=== PATIENT | male | born 1990 | race Caucasian/White ===

== ENCOUNTER 2024-05-06 10:58 | Outpatient (AMB) | payer BC, SELFPAY ==
--- NOTE | 2024-05-06 11:02 | MHC.PC.OV ---
Vital Signs 05/06/24 11:10 Height 5 ft 11 in Weight 210 lb 8 oz BMI 29.4 BP 128/82 Blood Pressure Location Lt brachial Position Sitting Respiration 16 Pulse 79 Pulse Source Pulse Oximeter Temp 97.9 F Temp Source Oral Pulse Oximetry (%) 97 Oxygen Delivery Method Room Air Intake Visit Reasons: [employer]- PE request Intake Note: patient here for new patient visit. Italian Tutor Required: No Allergies No Known Allergies Allergy (Verified 05/06/24 11:35) Tobacco use date assessed: 05/06/24 Dental Screening Dental Screen Date: 05/06/24 Did you have a dental visit in the last 12 months?: Yes Did you have a dental problem in the last 6 months where you did not have access to dental care?: No Was dental information given to patient?: Patient has dentist HPI HPI Comments History of Present Illness Details New patient Prior PCP:?[facility]. Dr Nate Knight Last office visit/CPE: About 8 years Acute issue(s): None Not on prescription medication He admits to making healthy lifestyle changes, including diet and exercise Right fibular and right ankle fracture following a trampoline injury on 05/19/2024. He is followed by [facility]. Currently wearing ortho boot PMHx: None SurgHx: Right AC separation repair, right ankle repair FHx: Dad: Alcohol abuse SocHx: Smokes 5-7 cigarettes daily; he been smoking less than half a pack daily for 11 years. Drinks approx 7-14 beers weekly. Smokes a couple hits of cannabis occasionally Last eye exam several years ago Last tetanus vaccine unknown He has not been vaccinated for the flu and declines the vaccine [facility] Surgical History (Updated 05/06/24 @ 12:15 by Jana Cano CNP) History of ankle surgery History of shoulder surgery Family History (Updated 05/06/24 @ 11:09 by Rima Carlos MA) Father Alcohol abuse Brother FH: mental illness Social History (Updated 05/06/24 @ 11:15 by Rima Carlos MA) Housing: House Patient Tobacco Use Status: Current everyday Tobacco user Cigarette Packs Per Day: 0 Cigarettes Per Day: 7 e-Cigarette/Vaping Use: Never Used Second Hand Smoke Exposure: Yes Substance Use Type: Marijuana service: No Current occupational status: employed 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 1. Little interest or pleasure in doing things: not at all 2. Feeling down, depressed, or hopeless: not at all 3. Trouble falling or staying asleep, or sleeping too much: several days 4. Feeling tired or having little energy: several days 5. Poor appetite or overeating: not at all 6. Feeling bad about yourself - or that you are a failure or have let yourself or your family down: not at all 7. Trouble concentrating on things, such as reading the newspaper or watching television: not at all 8. Moving or speaking so slowly that other people could have noticed. Or the opposite - being so fidgety or restless that you have been moving around a lot more than usual: not at all 9. Thoughts that you would be better off or of hurting yourself in some way: not at all Total score: 2 Depression Screening Interpretation: Negative Depression Screening Done: Yes 12994 - PHQ-9 Billing: Yes Source: Developed by Drs. Alan Scott, Sabina Hernandez, Jayy Bradley and colleagues, with an educational britton from [employer]. Thrive Questionnaire Date Thrive assessed: 05/06/24 I am a: Patient What is your living situation today?: I have a steady place to live Within the past 12 months, did the food you bought not last and you didn't have the money to get more?: Never true Within the past 12 months, did you worry whether your food would run out before you got money to buy more?: Never true Do you have trouble paying for medicines?: No Do you have trouble getting transportation to medical appointments?: No Do you have trouble paying your heating and electricity bill?: No Do you have trouble taking care of your child, family member or friend?: No Do you have trouble with day-to-day activities such as bathing, preparing meals, shopping, managing finances, etc.?: No Are you currently unemployed and looking for a job?: No Are you interested in more education?: No Please select the resources that you would like help with: None Currently or been in a relationship where the following occur: No concerns reported THRIVE Score: 0 AUDIT C Alcohol Use Questionnaire (AUDIT-C) 1. How often do you have a drink containing alcohol?: 2-3 times a week 2. How many drinks containing alcohol do you have on a typical day when you are drinking?: 3 or 4 3. How often do you have six or more drinks on one occasion?: Monthly Total Score: 6 Score Reviewed/Action Taken: Yes ELE-7 AMB Questionnaire ELE-7 Date ELE - 7 assessed: 05/06/24 Feeling nervous, anxious, or on edge: 1 = Several days Not being able to stop or control worryin = Not at all Worrying too much about different things: 1 = Several days Trouble relaxin = Several days Being so restless that it is hard to sit still: 1 = Several days Becoming easily annoyed or irritable: 0 = Not at all Feeling afraid as if something awful might happen: 0 = Not at all Total ELE-7 score (0-4 normal; 5-9 mild; 10-14 moderate; 15-21 severe): 4 Source: Developed by Drs. Alan Scott, Sabina Hernandez, Jayy Bradley and colleagues, with an educational britton from [employer]. ELE-7 Assessment Billing ELE-7 Assessment Tool: ELE-7 Assessment 57968 Review of Systems Const Details: Denies chills, Denies fatigue, Denies fever(s), Denies headache(s) and Denies weakness HEENT Denies change in vision, Denies dizziness, Denies headache(s), Denies hearing loss, Denies nasal congestion, Denies sinus pain, Denies sinus pressure and Denies sore throat Card Denies chest pain, Denies lightheadedness, Denies dyspnea and Denies other (palpitations) Resp Denies cough, Denies dyspnea and Denies wheezing GI Denies abdominal pain, Denies melena, Denies hematochezia, Denies change in bowel habits, Denies dyspepsia and Denies nausea Denies hematuria and Denies dysuria Musc Denies abnormal gait, Denies myalgias, Denies arthralgias, Denies numbness and Denies tingling Skin/Breast Denies rash, Denies unusual bruising and Denies wounds Neuro Denies abnormal gait, Denies dizziness, Denies headache(s), Denies memory loss, Denies numbness, Denies Sensory deficit (Neuro), Denies tingling and Denies weakness Psych Denies anxiety, Denies depression and Denies memory loss Endo Denies cold intolerance, Denies fatigue, Denies heat intolerance, Denies polydipsia and Denies polyuria Ced/Lymph Denies easy bleeding and Denies easy bruising Aller/Immun Denies wheezing Physical exam (Primary Care) Vital Signs: Last Vital Signs Temp 97.9 F 05/06/24 11:10 Pulse 79 05/06/24 11:10 Resp 16 05/06/24 11:10 BP 128/82 05/06/24 11:10 Pulse Ox 97 05/06/24 11:10 Oxygen Delivery Method Room Air 05/06/24 11:10 BMI result Body Mass Index 29.4 Tobacco/Smoking Status: Tobacco use Status Tobacco use date assessed 05/06/24 05/06/24 11:18 Patient Tobacco Use Status Current everyday Tobacco 05/06/24 11:18 e-Cigarette/Vaping Use Never Used 05/06/24 11:18 PHQ-9: PHQ-9 Score PHQ-9: Total score 2 05/06/24 11:18 Depression Screening Interpretation: Negative Thrive Assessment: Date of Thrive Assessment Date Thrive assessed 05/06/24 05/06/24 11:18 Currently or been in a relationship where the following occur: No concerns reported Const Other: General: no acute distress, well developed, alert and awake Nutritional Appearance: well nourished Orientation/consciousness: patient oriented x3 HENMT Head: Yes normocephalic and Yes atraumatic Ears: hearing grossly normal bilaterally and TM's normal bilaterally General nose exam: Normal external nose present and Normal nares present Mouth: Normal oral and palatal mucosa present and moist mucous membranes Teeth and gingiva: dentition normal Throat: Yes oropharynx normal Eyes Pupils: Equal, round and reactive pupils present and Pupil accommodation reflex normal EOM: EOMs intact bilaterally Neck Neck: Yes normal visual inspection, Yes no lymphadenopathy and Yes trachea midline Thyroid: Thyroid normal Carotids: no bruits Lymphatic: no lymphadenopathy noted Chest Chest palpation & inspection: normal inspection of the chest Resp Effort & Inspection: normal respiratory effort Auscultation: clear to auscultation bilaterally Cardio Rate: regular rate Rhythm: regular rhythm Heart sounds: S1 normal heart sound present, S2 normal heart sound present, no gallops, no murmurs and no rubs Bruits: no abdominal aortic bruits and no carotid bruits GI Palpation (GI): No Abdominal aortic bruit present, Soft to palpation, nontender, No hepatosplenomegaly present and No Rebound tenderness present Auscultation: normal bowel sounds General: Yes no CVA tenderness Back/Spine/Pelvis Back: no CVA tenderness Cervical Spine: cervical ROM normal and No Cervical spine tenderness Thoracic/Lumbar Spine: thoraco-lumbar ROM normal, No pain with thoraco-lumbar ROM, No thoracic spinal tenderness and No lumbar spinal tenderness Skin General: warm and dry. Normal skin color. Normal skin turgor Lesions: no lesions Rashes: no rashes Trauma: no lacerations or abrasions Wounds: no wounds Nails: normal Neuro General: patient oriented x3, gait normal and CN's II-XI intact bilaterally Cranial nerves: Yes Equal, round and reactive pupils present Cognition (Neuro): normal cognition Gait exam (Neuro): Normal gait present Motor exam (neuro): 5/5 motor strength present throughout Sensory Exam: No Sensory deficit (Neuro) Deep tendon reflexes (DTR's): Right patellar reflex intensity grade: 2+ and Left patellar reflex intensity grade: 2+ Extrem General: Yes normal to inspection, No edema and No calf tenderness Psych Appearance: grossly normal Affect: normal affect Attitude: cooperative Thought process: Normal thought process present Coding Level of Care Code New Pt Level 3 (91574) New Pt Prev Care 18-39yr(73084 Diagnoses Normal physical examination, routine Z00.00 Routine eye exam Z01.00 History of ankle surgery Z98.890 Smoking trying to quit Z72.0 Laboratory tests ordered as part of a complete physical exam (CPE) Z00.00 Additional Codes ELE-7 Assessment Billing - ELE-7 Assessment Tool: ELE-7 Assessment 27707 ([id number]) Assessment & Plan Assessment & Plan (1) Normal physical examination, routine: Code(s): Z00.00 - Encounter for general adult medical examination without abnormal findings Category: Medical Plan: Slight physical restrictions and limitations due to h/o right ankle fracture Healthy diet and routine exercise encouraged Encouraged to reduce alcohol consumption to no more than 7 drinks per week Advised to get lab work done and follow up with for a telehealth visit in 2-3 weeks Return sooner with symptoms or concerns Verbalized understanding and agreed with the pain (2) Routine eye exam: Code(s): Z01.00 - Encounter for examination of eyes and vision without abnormal findings Category: Medical Plan: Last eye exam several years ago Referred to Ophthalmology for routine eye exam (3) History of ankle surgery: Code(s): Z98.890 - Other specified postprocedural states Category: Surgical Plan: Followed by [facility] (4) Smoking trying to quit: Code(s): Z72.0 - Tobacco use Category: Social Hx Plan: Smokes 5-7 cigarettes daily; he been smoking less than half a pack daily for 11 years He notes that he has never tried medication for smoking cessation and expressed desire to stop smoking with medication treatment Instructed on the health risks and complications of cigarette smoking. Smoking cessation encouraged Nicotine patch ordered. Advised to use as prescribed. Instructed on the risks, benefits, and potential adverse reactions of the medications Follow-up with worsening or new symptoms Verbalized understanding and agreed with the plan (5) Laboratory tests ordered as part of a complete physical exam (CPE): Code(s): Z00.00 - Encounter for general adult medical examination without abnormal findings Category: Medical Plan: Fasting labs ordered as part of a complete physical exam. Advised to fast for at least 10 hours before getting labs drawn. May drink water Verbalized understanding and agreed with treatment plan. Orders: Orders Complete Blood Count Auto Diff Today Z00.00 - Encounter for general adult medical examination without abnormal findings Lipid Panel Today Z00.00 - Encounter for general adult medical examination without abnormal findings Comprehensive [place]. Panel Fast Today Z00.00 - Encounter for general adult medical examination without abnormal findings TSH reflex Free T4 Today Z00.00 - Encounter for general adult medical examination without abnormal findings UA CC w/rflx Micro + Cult Today Z00.00 - Encounter for general adult medical examination without abnormal findings Referrals Ophthalmology Referral Z01.00 - Encounter for examination of eyes and vision without abnormal findings Medications: New nicotine Apply 14 mg patch daily x6 weeks, then apply 7 mg patch daily x2 weeks 1 patch transdermal Q24H 56 ea 0RF
[2024-05-06 11:10] VITALS: BP 128/82; PULSE 79; RESP 16; TEMP 36.6; O2SAT 97; BMI 29.4
== END 2024-05-06 11:58 | disposition home or self-care (01) ==
PROVIDERS: Visit Provider Nurse Practitioner Family
DX: Z00.00 Encounter for general adult medical examination without abnormal findings (principal); F17.210 Nicotine dependence, cigarettes, uncomplicated; Z98.890 Other specified postprocedural states

== ENCOUNTER → 2024-05-06 10:58 | Outpatient (BNVA) | payer BC, SELFPAY | PROVIDERS: Visit Provider Nurse Practitioner Family | DX: Z00.00 Encounter for general adult medical examination without abnormal findings (principal); Z72.0 Tobacco use | CPT/HCPCS: 96127 ==

== ENCOUNTER 2024-05-06 12:03 | Outpatient (REF) | payer BC, SELFPAY ==
[2024-05-06 14:08] LABS: MANUAL DIFF FLAG NO
[2024-05-06 14:09] LABS: Appearance Urine Clear; Color Urine Yellow; Glucose Urine UA Negative (Negative); Leukocyte Esterase Urine Negative (Negative); Nitrite Urine Negative (Negative); Specific Gravity - Urine 1.025 (1.005-1.025); Urine Blood Negative (Negative); Urine Ketones Negative (Negative); Urine Protein Negative (Neg-Trace)
[2024-05-06 14:18] LABS: Basophils Percent Auto 0.6 % (0-2); Eosinophils Absolute Auto 0.1 X10*3/uL (0.0-0.4); Eosinophils Percent Auto 1.1 % (0-4); Hematocrit 47.4 % (42.0-52.0); Hemoglobin 15.8 g/dl (14.0-18.0); Imm Gran Abs Auto 0.02 X10*3/uL (0.00-0.03); Imm Gran Pct Auto 0.4 % (0.0-0.4); Lymphocytes Absolute Auto 0.9 X10*3/uL (1.2-4.9); Lymphocytes Percent Auto 19.2 % (20-40); Mean Corpuscular HGB Conc 33.3 g/dl (31.0-36.0); Mean Corpuscular Hemoglobin 31.1 pg (27.0-33.0); Mean Corpuscular Volume 93.3 fL (80.0-98.0); Mean Platelet Volume 10.4 fL (9.4-12.4); Monocytes Absolute Auto 0.3 X10*3/uL (0.1-1.2); Neutrophils Absolute Auto 3.4 x10*3/uL (2.0-8.3); Neutrophils Percent Auto 71.7 % (45-73); Platelet Count 199 X10*3/uL (160-400); Red Blood Count 5.08 X10*6/uL (4.60-5.80); Red Cell Distribution Width 12.7 % (11.0-16.0); White Blood Count 4.7 X10*3/uL (4.8-10.8)
[2024-05-06 14:46] LABS: Alanine Aminotransferase 71 U/L (0-40); Albumin Level 4.6 g/dL (3.5-5.0); Alkaline Phosphatase 75 U/L (39-117); Anion Gap 12 (12-20); Aspartate Amino Transferase 32 U/L (5-37); Bilirubin Total 0.7 mg/dL (0.0-1.0); Blood Urea Nitrogen 12 mg/dL (9-16); Carbon Dioxide 28 mmol/L (22-29); Chloride 106 mmol/L (96-108); Cholesterol 213 mg/dL (<200); Estimated Glomerular Filt Rate > 60; Glucose Fasting 94 mg/dL (60-99); HDL Cholesterol 56 mg/dL (>40); LDL Cholesterol Calculated 111 mg/dL (<100); Potassium 3.9 mmol/L (3.3-5.1); Sodium 142 mmol/L (135-145); Total Protein 7.7 g/dL (6.5-8.0); Triglycerides 233 mg/dL (<150)
[2024-05-06 14:50] LABS: TSH reflex Free T4 1.33 uIU/mL (0.32-4.0)
== END 2024-05-06 12:04 | disposition home or self-care (01) ==
LOC: HO.WFDLDS 12:03
PROVIDERS: Visit Provider Nurse Practitioner Family
DX: Z00.00 Encounter for general adult medical examination without abnormal findings (principal)
CPT/HCPCS: 36415; 80053; 80061; 81003; 84443; 85025

== ENCOUNTER 2024-05-21 09:41 | Outpatient (AMB) | payer BC, SELFPAY ==
--- NOTE | 2024-05-21 09:46 | A.OFFPC_ITS ---
Vital Signs 05/21/24 09:50 Height 5 ft 11 in Weight 213 lb 4 oz BMI 29.7 BP 120/86 Blood Pressure Location Rt brachial Position Sitting Respiration 16 Pulse 73 Pulse Source Pulse Oximeter Temp 97.6 F Temp Source Oral Pulse Oximetry (%) 97 Oxygen Delivery Method Room Air Intake Visit Reasons: Family Medical leave Paperwork discuss Intake Note: patient here to discuss family medical leave paperwork Transportation Agent Required: No Allergies No Known Allergies Allergy (Verified 05/21/24 10:00) Medication List - Last Reconciled 05/21/24 by Jana Cano CNP nicotine 1 patch transdermal Q24H Tobacco use date assessed: 05/21/24 Dental Screening Dental Screen Date: 05/21/24 Did you have a dental visit in the last 12 months?: Yes Did you have a dental problem in the last 6 months where you did not have access to dental care?: No Was dental information given to patient?: Patient has dentist HPI HPI Comments History of Present Illness Details 34-year-old male presents with requests to complete FMLA paperwork for his employer. He had left ankle repair surgery in February,. He is [facility]. He is currently doing formal physical therapy twice weekly and home/self physical therapy the rest of the week. No acute symptoms at this time. COUNT INCLUDES THE [facility] Surgical History (Updated 05/06/24 @ 12:15 by Jana Cano CNP) History of ankle surgery History of shoulder surgery Family History (Updated 05/06/24 @ 11:09 by Rima Carlos MA) Father Alcohol abuse Brother FH: mental illness Social History (Updated 05/06/24 @ 11:15 by Rima Carlos MA) Housing: House Patient Tobacco Use Status: Current everyday Tobacco user Cigarette Packs Per Day: 0 Cigarettes Per Day: 7 e-Cigarette/Vaping Use: Never Used Second Hand Smoke Exposure: Yes Substance Use Type: Marijuana service: No Current occupational status: employed 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 1. Little interest or pleasure in doing things: not at all 2. Feeling down, depressed, or hopeless: not at all 3. Trouble falling or staying asleep, or sleeping too much: not at all 4. Feeling tired or having little energy: not at all 5. Poor appetite or overeating: not at all 6. Feeling bad about yourself - or that you are a failure or have let yourself or your family down: not at all 7. Trouble concentrating on things, such as reading the newspaper or watching television: not at all 8. Moving or speaking so slowly that other people could have noticed. Or the opposite - being so fidgety or restless that you have been moving around a lot more than usual: not at all 9. Thoughts that you would be better off or of hurting yourself in some way: not at all Total score: 0 20463 - PHQ-9 Billing: Yes Source: Developed by Drs. Alan Scott, Sabina Hernandez, Jayy Bradley and colleagues, with an educational britton from [employer]. Thrive Questionnaire Date Thrive assessed: 05/21/24 I am a: Patient What is your living situation today?: I have a steady place to live Within the past 12 months, did the food you bought not last and you didn't have the money to get more?: Never true Within the past 12 months, did you worry whether your food would run out before you got money to buy more?: Never true Do you have trouble paying for medicines?: No Do you have trouble getting transportation to medical appointments?: No Do you have trouble paying your heating and electricity bill?: No Do you have trouble taking care of your child, family member or friend?: No Do you have trouble with day-to-day activities such as bathing, preparing meals, shopping, managing finances, etc.?: No Are you currently unemployed and looking for a job?: No Are you interested in more education?: No Please select the resources that you would like help with: None Currently or been in a relationship where the following occur: No concerns reported THRIVE Score: 0 ELE-7 AMB Questionnaire ELE-7 Date ELE - 7 assessed: 05/21/24 Feeling nervous, anxious, or on edge: 0 = Not at all Not being able to stop or control worryin = Not at all Worrying too much about different things: 1 = Several days Trouble relaxin = Not at all Being so restless that it is hard to sit still: 0 = Not at all Becoming easily annoyed or irritable: 0 = Not at all Feeling afraid as if something awful might happen: 0 = Not at all Total ELE-7 score (0-4 normal; 5-9 mild; 10-14 moderate; 15-21 severe): 1 Source: Developed by Drs. Alan Scott, Sabina Hernandez, Jayy Bradley and colleagues, with an educational britton from [employer]. ELE-7 Assessment Billing ELE-7 Assessment Tool: ELE-7 Assessment 33174 Review of Systems Const Details: Const Denies chills, Denies fatigue, Denies fever(s), Denies headache(s) and Denies weakness ENT Denies dizziness and Denies headache(s) Card Denies chest pain, Denies lightheadedness, Denies dyspnea and Denies other (Palpitations) Resp Denies cough, Denies dyspnea, Denies wheezing and Denies other ( shortness of breath) GI Denies abdominal pain, Denies melena, Denies hematochezia, Denies change in bowel habits, Denies dyspepsia and Denies nausea Denies hematuria and Denies dysuria Musc Denies abnormal gait, Denies myalgias, Denies arthralgias, Denies numbness and Denies tingling Skin/Breast Denies rash, Denies unusual bruising and Denies wounds Neuro Denies abnormal gait, Denies dizziness, Denies headache(s), Denies memory loss, Denies numbness, Denies Sensory deficit (Neuro), Denies tingling and Denies weakness Psych Denies anxiety, Denies depression, Denies memory loss Endo Denies cold intolerance, Denies fatigue, Denies heat intolerance, Denies polydipsia and Denies polyuria Aller/Immun Denies wheezing Physical exam (Primary Care) Vital Signs: Last Vital Signs Temp 97.6 F 05/21/24 09:50 Pulse 73 05/21/24 09:50 Resp 16 05/21/24 09:50 BP 120/86 05/21/24 09:50 Pulse Ox 97 05/21/24 09:50 Oxygen Delivery Method Room Air 05/21/24 09:50 BMI result Body Mass Index 29.7 Tobacco/Smoking Status: Tobacco use Status Tobacco use date assessed 05/21/24 05/21/24 09:53 Patient Tobacco Use Status Current everyday Tobacco 05/21/24 09:48 e-Cigarette/Vaping Use Never Used 05/21/24 09:48 PHQ-9: PHQ-9 Score PHQ-9: Total score 0 05/21/24 09:53 Thrive Assessment: Date of Thrive Assessment Date Thrive assessed 05/21/24 05/21/24 09:53 Currently or been in a relationship where the following occur: No concerns reported Const Other: General: no acute distress and well developed Nutritional Appearance: well nourished Orientation/consciousness: patient oriented x3 HENMT Head: Yes normocephalic and Yes atraumatic Eyes General: appearance normal, both eyes and all related structures Pupils: Equal, round and reactive pupils present EOM: EOMs intact bilaterally Resp Effort & Inspection: normal respiratory effort Auscultation: clear to auscultation bilaterally Cardio Rate: regular rate Rhythm: regular rhythm Heart sounds: S1 normal heart sound present, S2 normal heart sound present, no gallops, no murmurs and no rubs GI Palpation (GI): No Abdominal aortic bruit present, Soft to palpation, nontender, No hepatosplenomegaly present and No Rebound tenderness present Auscultation: normal bowel sounds General: Yes no CVA tenderness Back/Spine/Pelvis Back: no CVA tenderness Extrem General: Yes normal to inspection, No edema and No calf tenderness Skin General: warm and dry. Normal skin color. Normal skin turgor Neuro General: patient oriented x3, gait normal and no focal neuro deficit Cranial nerves: Yes Equal, round and reactive pupils present Cognition (Neuro): normal cognition Gait exam (Neuro): Normal gait present Sensory Exam: No Sensory deficit (Neuro) Psych Appearance: grossly normal Affect: normal affect Attitude: cooperative Thought process: Normal thought process present Coding Level of Care Code Est Pt Level 3 (80230) Diagnoses Dyslipidemia E78.5 History of ankle surgery Z98.890 Additional Codes ELE-7 Assessment Billing - ELE-7 Assessment Tool: ELE-7 Assessment 51288 ([id number]) Assessment & Plan Assessment & Plan (1) Dyslipidemia: Code(s): E78.5 - Hyperlipidemia, unspecified Category: Medical Plan: Recent labs reviewed with the patient. Unremarkable findings except for elevat ed triglycerides and total cholesterol, 233 and 213 respectively Advised to limit foods high in saturated fat and avoid foods high in trans fat Routine exercise encouraged Advised to fast for 10-12 hours, may drink water only, and get lipid panel blood work done to 3 days before his next visit Follow-up for telehealth visit in 2 months or sooner with symptoms or concerns Verbalized understanding and agreed with treatment plan (2) History of ankle surgery: Code(s): Z98.890 - Other specified postprocedural states Category: Surgical Plan: No acute symptoms Followed by [facility] in currently doing physical therapy FMLA paperwork completed and request to be scanned in the patient chart Orders: Orders Lipid Panel 2 Months E78.5 - Hyperlipidemia, unspecified
[2024-05-21 09:50] VITALS: BP 120/86; PULSE 73; RESP 16; TEMP 36.4; O2SAT 97; BMI 29.7
== END 2024-05-21 10:25 | disposition home or self-care (01) ==
PROVIDERS: Visit Provider Nurse Practitioner Family
DX: E78.5 Hyperlipidemia, unspecified (principal); Z98.890 Other specified postprocedural states

== ENCOUNTER → 2024-05-21 09:41 | Outpatient (BNVA) | payer BC, SELFPAY | PROVIDERS: Visit Provider Nurse Practitioner Family | DX: E78.5 Hyperlipidemia, unspecified (principal); Z98.890 Other specified postprocedural states | CPT/HCPCS: 96127 ==

== ENCOUNTER → 2024-05-27 14:00 | Outpatient (BNVA) | payer BC, SELFPAY | PROVIDERS: PCP Nurse Practitioner Family; Visit Provider Nurse Practitioner Family ==